=== PATIENT | female | born 1975 | race African-American/Black ===

== ENCOUNTER 2022-11-23 21:41 | Observation (INO) | payer OTHER ==
[2022-11-23 23:32] LABS: BASO % 0.4 % (0-2.0); EOS % 5.8 % (0-4.5); HEMATOCRIT 22.2 % (32.4-45.2); LYMPH % 23.3 % (8-40); MCHC 28.4 g/dl (32.0-36.0); MEAN PLT VOLUME 8.2 fl (7.5-11.1); MONO % 7.2 % (3.8-10.2); NEUT % 63.3 % (42.8-82.8); PLATELET COUNT 450 10^3/uL (134-434); RDW 20.8 % (11.6-15.6); WHITE BLOOD COUNT 6.5 K/mm3 (4.0-10.0)
[2022-11-23 23:35] LABS: MCH 16.2 pg (25.7-33.7)
[2022-11-23 23:36] LABS: HEMOGLOBIN 6.3 GM/dL (10.7-15.3)
[2022-11-24 00:05] LABS: ANISOCYTOSIS 2+; TARGET CELLS 3+
[2022-11-24 00:06] LABS: OVALOCYTE 1+; PLATELET ESTIMATE INCREASED; TEAR DROP CELLS 1+
[2022-11-24 02:08] LABS: CALCIUM 8.2 mg/dL (8.5-10.1)
[2022-11-24 02:09] LABS: ALBUMIN 3.2 g/dl (3.4-5.0); BLOOD UREA NITROGEN 7.6 mg/dL (7-18)
[2022-11-24 02:12] LABS: CREATININE 0.6 mg/dL (0.55-1.3)
[2022-11-24 02:13] LABS: BILIRUBIN,TOTAL 0.3 mg/dL (0.2-1); TOT PROT 6.6 g/dl (6.4-8.2)
[2022-11-24 02:26] LABS: INR 0.98 (0.83-1.09); PROTHROMBIN TIME (PATIENT) 11.4 SEC (9.7-13.0)
[2022-11-24 02:29] LABS: ACTIVATED PTT 30.4 SECONDS (25.2-36.5)
[2022-11-24 06:11] VITALS: RESP 18
[2022-11-24 06:25] LABS: RETICULOCYTES 1.23 % (0.5-1.5)
[2022-11-24 11:57] LABS: EOS % 6.4 % (0-4.5); HEMATOCRIT 23.8 % (32.4-45.2); HEMOGLOBIN 7.1 GM/dL (10.7-15.3); LYMPH % 24.9 % (8-40); MCHC 30.1 g/dl (32.0-36.0); MONO % 7.9 % (3.8-10.2); NEUT % 58.8 % (42.8-82.8); PLATELET COUNT 413 10^3/uL (134-434); RBC 4.02 M/mm3 (3.60-5.2); RDW 23.7 % (11.6-15.6); WHITE BLOOD COUNT 5.6 K/mm3 (4.0-10.0)
[2022-11-24 12:06] LABS: MCH 17.8 pg (25.7-33.7)
[2022-11-24 12:12] LABS: CALCIUM 8.3 mg/dL (8.5-10.1)
[2022-11-24 12:13] LABS: ALBUMIN 3.3 g/dl (3.4-5.0); BLOOD UREA NITROGEN 6.3 mg/dL (7-18); MAGNESIUM 2.4 mg/dL (1.8-2.4)
[2022-11-24 12:16] LABS: CREATININE 0.5 mg/dL (0.55-1.3)
[2022-11-24 12:17] LABS: BILIRUBIN,TOTAL 0.7 mg/dL (0.2-1); TOT PROT 6.8 g/dl (6.4-8.2)
[2022-11-24] MEDS ORDERED: ACETAMINOPHEN 1000 MG/100 ML BAG IVPB PRN (13:07)
[2022-11-24] MEDS ORDERED: IRON SUCROSE INJECTION 200 MG in SODIUM CHLORIDE 90 ML IVPB ONE (14:00)
[2022-11-24 15:46] VITALS: BP 108/60; PULSE 77; TEMP 97.7
[2022-11-24 16:52] VITALS: BMI 28.2
== END 2022-11-24 18:32 | disposition home or self-care (01) ==
LOC: JER 21:41 → JERBED 11-24 01:31 → J8W 11-24 09:31
PROVIDERS: ADMIT Internal Medicine
PROC: 30233N1 Transfusion of Nonautologous Red Blood Cells into Peripheral Vein, Percutaneous Approach (ICD-10-PCS; principal; 2022-11-24)
PROC: 3E033GC Introduction of Other Therapeutic Substance into Peripheral Vein, Percutaneous Approach (ICD-10-PCS; 2022-11-24)
DX: D50.9 Iron deficiency anemia, unspecified (principal); D25.9 Leiomyoma of uterus, unspecified; N92.0 Excessive and frequent menstruation with regular cycle; Z98.84 Bariatric surgery status
CPT/HCPCS: 0241U-QW; 36415; 36430; 71045-TC-FY; 80053; 82272; 82728; 83540; 83550; 83735; 84100; 84484; 84703; 85025; 85045; 85610; 85660; 85730; 86850; 86900; 86901; 86922; 93005; 93010; 96365; 99285-25; G0378; J1756; P9058

== ENCOUNTER 2023-04-10 04:30 | Inpatient (IN) | payer OTHER ==
[2023-04-06 11:07] VITALS: BMI 29.2
[2023-04-10] MEDS ORDERED: ceFAZolin SODIUM 1 GM VIAL ONE (06:29)
[2023-04-10] MEDS ORDERED: CEFAZOLIN 2 GM in DEXTROSE 5%-WATER - 100 ML IVPB ONE (06:30)
[2023-04-10] MEDS ORDERED: PHENAZOPYRIDINE HCL 100 MG TABLET (FP) PO ONE (06:30)
[2023-04-10] MEDS ORDERED: ACETAMINOPHEN 1000 MG/100 ML BAG IVPB ONE (06:30)
[2023-04-10] MEDS ORDERED: CEFAZOLIN SODIUM 2 GM in DEXTROSE 5%-WATER 100 ML IVPB ONE (06:58)
[2023-04-10] MEDS ORDERED: BUPIVACAINE HCL/PF 0.5% (5MG/ML) 10 ML VIAL ONE (07:16)
[2023-04-10] MEDS ORDERED: BUPIVACAINE LIPOSOME/PF (EXPAREL) 266 MG/20 ML VIAL ONE (07:16)
[2023-04-10] MEDS ORDERED: MIDAZOLAM HCL 2 MG/2 ML SINGLE DOSE VIAL ONE (07:28)
[2023-04-10] MEDS ORDERED: PROPOFOL 20 ML ONE ×2 (07:42→09:14)
[2023-04-10] MEDS ORDERED: ROCURONIUM BROMIDE 50 MG/5 ML SYRINGE ONE (07:42)
[2023-04-10] MEDS ORDERED: TRANEXAMIC ACID 1000 MG/10 ML VIAL IVPUSH ONE (08:00)
[2023-04-10] MEDS ORDERED: cefOXitin SODIUM 2 GM VIAL (RESTRICTED TO ID) IVPB ONE (08:00)
[2023-04-10] MEDS ORDERED: HYDROmorphone HCl 2 MG/ML VIAL ONE (08:17)
[2023-04-10] MEDS ORDERED: ONDANSETRON 4 MG/2 ML VIAL ONE (08:18)
[2023-04-10] MEDS ORDERED: DEXAMETHASONE SOD PHOSPHATE 4 MG/1 ML VIAL ONE (08:18)
[2023-04-10] MEDS ORDERED: KETOROLAC TROMETHAMINE 30 MG/1 ML VIAL ONE (08:18)
[2023-04-10] MEDS ORDERED: NEOSTIGMINE METHYLSULFATE 0.5 MG/1 ML - 10 ML MDV ONE (08:30)
[2023-04-10] MEDS ORDERED: GLYCOPYRROLATE 0.2 MG/1 ML VIAL ONE (08:31)
[2023-04-10] MEDS ORDERED: SUCCINYLCHOLINE CHLORIDE 200 MG/10 ML SYRINGE ONE (09:14)
[2023-04-10] MEDS ORDERED: ACETAMINOPHEN 325 MG TABLET (FP) PO PRN (09:29)
[2023-04-10] MEDS ORDERED: oxyCODONE HCL 5 MG TABLET PO PRN ×3 (09:29→15:18)
[2023-04-10] MEDS ORDERED: ONDANSETRON 4 MG/2 ML VIAL IVPUSH PRN ×2 (09:29→09:34)
[2023-04-10] MEDS ORDERED: DOCUSATE SODIUM 100 MG CAPSULE (FP) PO PRN (09:29)
[2023-04-10] MEDS ORDERED: BISACODYL 5 MG TABLET.DR (FP) PO PRN (09:29)
[2023-04-10] MEDS ORDERED: IBUPROFEN 800 MG/8 ML IJ IVPB PRN (09:29)
[2023-04-10] MEDS: LACTATED RINGERS SOLUTION 1,000 ML IV SCH (11:40)
[2023-04-10] MEDS ORDERED: ACETAMINOPHEN 500 MG TABLET (FP) PO PRN (15:18)
[2023-04-10] MEDS: CEFAZOLIN 1 GM in DEXTROSE 5%-WATER - 50 ML IVPB SCH (16:47)
[2023-04-10] MEDS: ACETAMINOPHEN 1000 MG/100 ML BAG IVPB SCH ×2 (16:58→23:56)
[2023-04-10] MEDS: FERROUS SO4 325 MG TABLET (FP) PO SCH (17:30)
[2023-04-10] MEDS: IBUPROFEN 800 MG/8 ML IJ IVPB PRN (18:19)
[2023-04-10 18:49] LABS: HEMATOCRIT 22.4 % (32.4-45.2); MCH 16.3 pg (25.7-33.7); MCHC 29.1 g/dl (32.0-36.0); MEAN CELL VOLUME 55.9 fl (80-96); MEAN PLT VOLUME 8.3 fl (7.5-11.1); PLATELET COUNT 110 10^3/uL (134-434); RDW 20.9 % (11.6-15.6); WHITE BLOOD COUNT 8.8 K/mm3 (4.0-10.0)
[2023-04-10 18:51] LABS: HEMOGLOBIN 6.5 GM/dL (10.7-15.3)
[2023-04-10 19:01] LABS: POTASSIUM 4.9 mmol/L (3.5-5.1)
[2023-04-10 19:02] LABS: CALCIUM 8.5 mg/dL (8.5-10.1)
[2023-04-10 19:03] LABS: BLOOD UREA NITROGEN 7.1 mg/dL (7-18)
[2023-04-10 19:06] LABS: CREATININE 0.6 mg/dL (0.55-1.3)
[2023-04-11] MEDS: CEFAZOLIN 1 GM in DEXTROSE 5%-WATER - 50 ML IVPB SCH (00:31)
[2023-04-11] MEDS: SIMETHICONE 80 MG TAB.CHEW (FP) PO PRN ×3 (05:11→20:36)
[2023-04-11] MEDS: oxyCODONE HCL 5 MG TABLET PO PRN ×2 (05:12→17:01)
[2023-04-11 06:50] LABS: HEMOGLOBIN 8.9 GM/dL (10.7-15.3); MEAN CELL VOLUME 63.3 fl (80-96); MEAN PLT VOLUME 8.8 fl (7.5-11.1); PLATELET COUNT 93 10^3/uL (134-434); RBC 4.68 M/mm3 (3.60-5.2); RDW 28.1 % (11.6-15.6)
[2023-04-11 07:00] LABS: HEMATOCRIT 29.6 % (32.4-45.2)
[2023-04-11 07:09] LABS: POTASSIUM 4.8 mmol/L (3.5-5.1)
[2023-04-11 07:10] LABS: CALCIUM 8.4 mg/dL (8.5-10.1)
[2023-04-11 07:11] LABS: BLOOD UREA NITROGEN 7.2 mg/dL (7-18)
[2023-04-11 07:14] LABS: CREATININE 0.7 mg/dL (0.55-1.3)
[2023-04-11] MEDS: FERROUS SO4 325 MG TABLET (FP) PO SCH ×2 (07:59→17:01)
[2023-04-11] MEDS: ACETAMINOPHEN 1000 MG/100 ML BAG IVPB SCH ×2 (07:59→15:56)
[2023-04-11] MEDS: LACTATED RINGERS SOLUTION 1,000 ML IV SCH (09:17)
[2023-04-11] MEDS: ENOXAPARIN NA (PORCINE) 40 MG/0.4 ML DISP.SYRIN SQ SCH (09:17)
[2023-04-11] MEDS: IBUPROFEN 800 MG/8 ML IJ IVPB PRN ×2 (10:34→20:42)
[2023-04-11 17:03] LABS: BASO % 0.7 % (0-2.0); EOS % 0.9 % (0-4.5); HEMATOCRIT 28.2 % (32.4-45.2); HEMOGLOBIN 8.5 GM/dL (10.7-15.3); LYMPH % 22.1 % (8-40); MCHC 30.2 g/dl (32.0-36.0); MEAN CELL VOLUME 62.6 fl (80-96); MEAN PLT VOLUME 8.8 fl (7.5-11.1); MONO % 7.5 % (3.8-10.2); NEUT % 68.8 % (42.8-82.8); PLATELET COUNT 93 10^3/uL (134-434); RDW 27.2 % (11.6-15.6); WHITE BLOOD COUNT 7.6 K/mm3 (4.0-10.0)
[2023-04-11 17:10] LABS: MCH 18.9 pg (25.7-33.7)
[2023-04-11 18:02] LABS: ANISOCYTOSIS 3+; MACROCYTOSIS 0; PLATELET ESTIMATE DECREASED
[2023-04-12] MEDS: SIMETHICONE 80 MG TAB.CHEW (FP) PO PRN (01:17)
[2023-04-12] MEDS: oxyCODONE HCL 5 MG TABLET PO PRN (08:32)
[2023-04-12] MEDS: FERROUS SO4 325 MG TABLET (FP) PO SCH (08:32)
[2023-04-12] MEDS: ENOXAPARIN NA (PORCINE) 40 MG/0.4 ML DISP.SYRIN SQ SCH (09:38)
[2023-04-12 10:45] VITALS: BP 116/66; PULSE 66; RESP 17; TEMP 98.4
== END 2023-04-12 12:20 | disposition home or self-care (01) | DRG 519 ==
LOC: J2C 04:30 → J3W 12:01
PROVIDERS: ADMIT Obstetrics & Gynecology; ATTEND Obstetrics & Gynecology
PROC: 0UT70ZZ Resection of Bilateral Fallopian Tubes, Open Approach (ICD-10-PCS; 2023-04-10)
PROC: 0UB10ZZ Excision of Left Ovary, Open Approach (ICD-10-PCS; 2023-04-10)
PROC: 0UT90ZZ Resection of Uterus, Open Approach (ICD-10-PCS; principal; 2023-04-10 07:30)
PROC: 30233N1 Transfusion of Nonautologous Red Blood Cells into Peripheral Vein, Percutaneous Approach (ICD-10-PCS; 2023-04-11)
DX: D25.9 Leiomyoma of uterus, unspecified (principal); D62 Acute posthemorrhagic anemia; N83.292 Other ovarian cyst, left side; D25.1 Intramural leiomyoma of uterus
CPT/HCPCS: 36415; 36430; 36511; 80048; 81025; 85025; 85027; 86922; 88302-TC; 88305-TC; 88341-TC; 94760; P9038; P9058